=== PATIENT | female | born 1990 | race Two or more races ===

== ENCOUNTER → 2017-05-31 | Outpatient (CLI) | payer OTHER ==
--- NOTE | 2017-05-31 09:17 | RAD ---
Limited ultrasound of the left breast 05/31/2017 Clinical history: The patient has felt a palpable lump in the left breast at approximately the 1:00 position for the last 5 years. Technique: A real-time ultrasound examination of the left breast in the area where the patient feels a palpable abnormality ( 1:00 position) was performed. Multiple images were obtained. Findings: No solid or cystic mass is seen within the visualized portions of the left breast by ultrasound. Impression: Negative study.
== END | disposition home or self-care (01) ==
LOC: US 08:18
PROVIDERS: ATTEND Family Medicine
DX: N63 Unspecified lump in breast (principal)
CPT/HCPCS: 76641